=== PATIENT | male | born 1970 | race Caucasian/White ===

== ENCOUNTER 2017-11-07 08:43 | Emergency (ER) | payer OTHER ==
[~2017-11-07] VITALS: Ht 172.7 cm; Wt 74.7 kg
[~2017-11-07 08:43] MED LIST: Ambien PO; Bactrim,Septra DS 80 PO; MOTRIN800 MG PO; Percocet 5/325,Endoc PO; Vicodin,Lortab 5/500 PO; Zoloft PO
[2017-11-07 09:28] LABS: HEMATOCRIT 45.4 % (38.0-50.0); HEMOGLOBIN 16.1 G/DL (12.5-16.6); MCH 30.4 PG (29.0-34.0); MCHC 35.5 G/DL (30.0-36.0); MCV 85.7 FL (86-99); PLATELET COUNT 206 K/uL (156-360); RBC DIS.WIDTH-CV 12.6 % (11.8-14.6); RBC DIS.WIDTH-SD 39.2 % (39-53); WHITE BLOOD COUNT 11.2 K/uL (4.1-10.2)
[2017-11-07 09:36] LABS: CHLORIDE 103 mEq/L (99-109); POTASSIUM 3.6 mEq/L (3.7-5.4); SODIUM 138 mEq/L (136-147)
[2017-11-07 09:38] LABS: GLUCOSE 118 mg/dL (70-99)
[2017-11-07 09:42] LABS: GFR ESTIMATE (CALCULATED) > 59 mL/min/ (58.99-99999)
[2017-11-07 09:43] LABS: UREA NITROGEN (BUN) 10 mg/dL (9-23)
[2017-11-07] MEDS ORDERED: ULTRAM50 MG PO (12:07)
[2017-11-07 12:22] VITALS: BP 134/85
[2017-11-07] MEDS ORDERED: ZANTAC75 M1 PO (14:23)
== END 2017-11-07 12:23 | disposition home or self-care (01) ==
LOC: EME 08:43
PROVIDERS: Physician Assistant
DX: L03.213 Periorbital cellulitis (principal); L03.211 Cellulitis of face; K02.9 Dental caries, unspecified; Z88.0 Allergy status to penicillin; F17.200 Nicotine dependence, unspecified, uncomplicated
CPT/HCPCS: 70491; 80048; 85027; 99281; 99284; J1885; J7030